=== PATIENT | female | born 1980 | race Caucasian/White ===

== ENCOUNTER 2018-06-25 11:17 | Emergency (ER) | payer OTHER ==
[2018-06-25] MEDS: KETOROLAC 60 MG INJ IM (12:46)
[2018-06-25] MEDS: ACETAMINOPHEN 500 MG TAB PO (13:57)
== END 2018-06-25 14:15 | disposition home or self-care (01) ==
LOC: FTE 11:17
DX: J06.9 Acute upper respiratory infection, unspecified (principal)
CPT/HCPCS: 81025; 87400; 96372; 99284-25

== ENCOUNTER 2018-10-23 14:52 | Emergency (ER) | payer OTHER ==
[2018-10-23] MEDS: LORAZEPAM 0.5 MG TAB PO (15:26)
== END 2018-10-23 15:49 | disposition home or self-care (01) ==
LOC: FTE 14:52
DX: R20.2 Paresthesia of skin (principal); R20.0 Anesthesia of skin; R06.02 Shortness of breath
CPT/HCPCS: 93005; 99283-25